=== PATIENT | male | born 1990 | race Caucasian/White ===

== ENCOUNTER 2017-07-20 05:54 | Emergency (ER) | payer SELFPAY ==
[~2017-07-20] VITALS: Ht 165.1 cm; Wt 109.1 kg
[2017-07-20 06:03] VITALS: BP 144/72; PULSE 115; RESP 18; O2SAT 93
[2017-07-20] MEDS ORDERED: ONDANSETRON HCL 4 MG/2 ML VIAL ONE (06:11)
[2017-07-20] MEDS ORDERED: SODIUM CHLOR 0.9% 1000 ML INJ 1,000 ML IV ONE (06:30)
[2017-07-20] MEDS ORDERED: ONDANSETRON HCL 4 MG/2 ML VIAL IV ONE (06:30)
[2017-07-20 06:52] LABS: AUTOMATED NEUTROPHIL # 6.4 TH/MM3 (1.8-7.7); BASOPHIL % 0.4 % (0.0-2.0); EOSINOPHIL # 0.1 TH/MM3 (0-0.4); EOSINOPHIL % 0.9 % (0.0-4.0); HEMATOCRIT 49.1 % (39.0-51.0); HEMO FLAGS DIFF FINAL; LYMPH % 37.4 % (9.0-44.0); LYMPHOCYTE # 4.5 TH/MM3 (1.0-4.8); MEAN CELL VOLUME 92.8 FL (80.0-100.0); MEAN CORPUSCULAR HEMOGLOBIN 32.2 PG (27.0-34.0); MEAN CORPUSCULAR HGB CONC 34.8 % (32.0-36.0); MONO % 8.8 % (0.0-8.0); NEUT % 52.5 % (16.0-70.0); PLATELET COUNT 293 TH/MM3 (150-450); RED BLOOD COUNT 5.29 MIL/MM3 (4.50-5.90); RED CELL DISTRIBUTION WIDTH 13.1 % (11.6-17.2); WHITE BLOOD COUNT 12.1 TH/MM3 (4.0-11.0)
[2017-07-20 07:00] VITALS: BP 113/58; PULSE 98; RESP 20; O2SAT 96
[2017-07-20 07:10] LABS: ANION GAP 11 MEQ/L (5-15); AST (GOT) 32 U/L (15-37); BICARBONATE 23.3 MEQ/L (21.0-32.0); BLOOD UREA NITROGEN 8 MG/DL (7-18); CHLORIDE 109 MEQ/L (98-107); GLOMERULAR FILTRATION RATE 88 ML/MIN (>89); POTASSIUM 3.7 MEQ/L (3.5-5.1); SODIUM (NA) 143 MEQ/L (136-145)
[2017-07-20 07:11] LABS: ALT (GPT) 55 U/L (12-78)
--- NOTE | 2017-07-20 07:20 | PD ---
HPI Chief Complaint: Alcohol/Drug Intoxication Time Seen by Provider: 06:19 Travel History International Travel<30 days: No Contact w/Intl Traveler<30days: No Traveled to known affect area: No History of Present Illness HPI The patient is a 26 year old male who presents to the [facility] emergency department with a history of being brought in under protective custody as a Decemberman act due to acute alcohol intoxication associated with combative behavior. According to the act the patient has been drinking alcohol for the last 24 hours. The patient on arrival is unable or unwilling to provide any history. The patient was initially combative on arrival. The patient was restrained in soft restraints for his and the staff's safety. The patient experienced nausea and vomiting on arrival. No other history is able to be obtained from the patient. [facility] Past Medical History Narrative Medical The patient's past medical history is unable to be obtained. Past Surgical History Surgical History: Unable to Obtain Social History Alcohol Use: Yes Tobacco Use: No Substance Use: No (unknown) Allergies-Medications (Allergen,Severity, Reaction): Coded Allergies: No Known Allergies (Unverified , 07/20/17) Review of Systems ROS Limitations: Intoxication, Altered Mental Status Gastrointestinal: Positive: Nausea, Vomiting Neurologic: Positive: Change in Mentation Psychiatric: Positive: Substance Abuse Physical Exam Narrative General: The patient is a well-developed well-nourished male, intermittently nauseated and vomiting on examination. The patient is also intermittently combative. The patient has slurred speech. The patient has a strong odor of alcohol about him. Head and Neck exam: Head is normocephalic atraumatic. Eyes: Pupils are equal round and reactive to light. Nose: Midline septum with pink mucous membranes Mouth: Dentition unremarkable. Moist mucus membranes. Posterior oropharynx is not erythematous. No tonsillar hypertrophy. Uvula midline. Airway patent. Neck: No palpable lymphadenopathy. No nuchal rigidity. No thyromegaly. Cardiovascular: Regular rate and rhythm without murmurs, gallops, or rubs. Lungs: Clear to auscultation bilaterally. No wheezes, rhonchi, or rales. Abdomen: Soft, without tenderness to palpation in all 4 quadrants of the abdomen. No guarding, rebound, or rigidity. Normal bowel sounds are audible. No tenderness on palpation of McBurney's point. Extremities: No clubbing, cyanosis, or edema. 2+ pulses in all 4 extremities. No calf tenderness on palpation. Back: No costovertebral angle tenderness to palpation. Neurologic Exam: The the patient is uncooperative with formal neurologic testing. The patient is moving all extremities equally with 5 over 5 strength. The patient has intact sensation over all dermatomes. Has slurred speech with a strong odor of alcohol about him. The patient is drowsy on examination although he is easily awakened. Skin Exam: No rash noted. Intact skin that is warm and dry. Data Data Last Documented VS Vital Signs Date Time Temp Pulse Resp B/P (MAP) Pulse Ox O2 Delivery O2 Flow Rate FiO2 07/20/17 06:03 115 18 144/72 (96) 93 Orders Orders Ondansetron Inj (Zofran Inj) (07/20/17 06:11) Complete Blood Count With Diff (07/20/17 06:19) Comprehensive Metabolic Panel (07/20/17:19) Lipase (07/20/17:19) Urinalysis - C+S If Indicated (07/20/17:19) Iv Access Insert/Monitor (07/20/17:19) Ecg Monitoring (07/20/17 06:19) Oximetry (07/20/17 06:19) Drug Screen, Random Urine (07/20/17:19) Alcohol (Ethanol) (07/20/17 06:19) Sodium Chlor 0.9% 1000 Ml Inj (Ns 1000 M (07/20/17 06:30) Ondansetron Inj (Zofran Inj) (07/20/17 06:30) Electrocardiogram (07/20/17 06:05) Labs Laboratory Tests Test 07/20/17 06:30 White Blood Count 12.1 TH/MM3 Red Blood Count 5.29 MIL/MM3 Hemoglobin 17.1 GM/DL Hematocrit 49.1 % Mean Corpuscular Volume 92.8 FL Mean Corpuscular Hemoglobin 32.2 PG Mean Corpuscular Hemoglobin Concent 34.8 % Red Cell Distribution Width 13.1 % Platelet Count 293 TH/MM3 Mean Platelet Volume 9.5 FL Neutrophils (%) (Auto) 52.5 % Lymphocytes (%) (Auto) 37.4 % Monocytes (%) (Auto) 8.8 % Eosinophils (%) (Auto) 0.9 % Basophils (%) (Auto) 0.4 % Neutrophils # (Auto) 6.4 TH/MM3 Lymphocytes # (Auto) 4.5 TH/MM3 Monocytes # (Auto) 1.1 TH/MM3 Eosinophils # (Auto) 0.1 TH/MM3 Basophils # (Auto) 0.0 TH/MM3 CBC Comment DIFF FINAL Differential Comment MDM Medical Decision Making Medical Screen Exam Complete: Yes Emergency Medical Condition: Yes Medical Record Reviewed: Yes Differential Diagnosis Alcohol intoxication, versus other substance intoxication, versus polysubstance abuse, versus acute psychosis Narrative Course During the course of the patients emergency department visit, the patients history, examination, and differential diagnosis were reviewed with the patient. The patient had IV access obtained and blood work sent for analysis. The patient was placed on a personnel monitor with oximetry and blood pressure monitoring. The patient was initially provided normal saline 1 L IV fluid bolus, Zofran 4 mg IV. The patients laboratory studies were reviewed and remarkable for a white count of 12.1, hemoglobin 17.1, platelets 293 with 8.8 monocytes. The patient's other laboratory studies are pending at the conclusion of my shift. The patient's case will be checked out to the oncoming emergency physician to disposition the patient based on the conclusion of the patient's workup. Diagnosis Primary Impression: Altered mental status Qualified Codes: R40.0 - Somnolence Breanna Figueroa MD Jul 20, 2017 07:20
[2017-07-20 07:21] LABS: ALKALINE PHOSPHATASE 98 U/L (45-117); TOTAL BILIRUBIN ADULT 0.3 MG/DL (0.2-1.0)
[2017-07-20 07:29] LABS: ALCOHOL 327 MG/DL (0-5)
--- NOTE | 2017-07-20 08:52 | PD ---
Physical Exam Date Seen by Provider: Jul 20, 2017 Time Seen by Provider: 08:51 Narrative 26-year-old male was brought in as a Marchman act by the solar lab technician for being found intensely intoxicated and destructive behavior. He was vomiting and was seen by the previous ER physician. Please refer to her notes regarding the details of history and physical. Sign out was to follow-up on his labs and the alcohol level. It is almost 330. Patient currently is inebriated. I will let him sleep it off and once he is awake and clinically sober will guide him to [facility]. Data Data Last Documented VS Vital Signs Date Time Temp Pulse Resp B/P (MAP) Pulse Ox O2 Delivery O2 Flow Rate FiO2 07/20/17 12:05 97.8 78 16 110/81 (91) 99 07/20/17 10:40 Room Air 07/20/17 07:00 2.00 Orders Orders Ondansetron Inj (Zofran Inj) (07/20/17 06:11) Complete Blood Count With Diff (07/20/17 06:19) Comprehensive Metabolic Panel (07/20/17 06:19) Lipase (07/20/17 06:19) Iv Access Insert/Monitor (07/20/17 06:19) Ecg Monitoring (07/20/17 06:19) Oximetry (07/20/17 06:19) Alcohol (Ethanol) (07/20/17 06:19) Sodium Chlor 0.9% 1000 Ml Inj (Ns 1000 M (07/20/17 06:30) Ondansetron Inj (Zofran Inj) (07/20/17 06:30) Electrocardiogram (07/20/17 06:05) Ed Discharge Order (07/20/17 12:03) Labs Laboratory Tests Test 07/20/17 06:30 White Blood Count 12.1 TH/MM3 Red Blood Count 5.29 MIL/MM3 Hemoglobin 17.1 GM/DL Hematocrit 49.1 % Mean Corpuscular Volume 92.8 FL Mean Corpuscular Hemoglobin 32.2 PG Mean Corpuscular Hemoglobin Concent 34.8 % Red Cell Distribution Width 13.1 % Platelet Count 293 TH/MM3 Mean Platelet Volume 9.5 FL Neutrophils (%) (Auto) 52.5 % Lymphocytes (%) (Auto) 37.4 % Monocytes (%) (Auto) 8.8 % Eosinophils (%) (Auto) 0.9 % Basophils (%) (Auto) 0.4 % Neutrophils # (Auto) 6.4 TH/MM3 Lymphocytes # (Auto) 4.5 TH/MM3 Monocytes # (Auto) 1.1 TH/MM3 Eosinophils # (Auto) 0.1 TH/MM3 Basophils # (Auto) 0.0 TH/MM3 CBC Comment DIFF FINAL Differential Comment Blood Urea Nitrogen 8 MG/DL Creatinine 1.03 MG/DL Random Glucose 92 MG/DL Total Protein 7.9 GM/DL Albumin 4.4 GM/DL Calcium Level 9.0 MG/DL Alkaline Phosphatase 98 U/L Aspartate Amino Transf (AST/SGOT) 32 U/L Alanine Aminotransferase (ALT/SGPT) 55 U/L Total Bilirubin 0.3 MG/DL Sodium Level 143 MEQ/L Potassium Level 3.7 MEQ/L Chloride Level 109 MEQ/L Carbon Dioxide Level 23.3 MEQ/L Anion Gap 11 MEQ/L Estimat Glomerular Filtration Rate 88 ML/MIN Lipase 206 U/L Ethyl Alcohol Level 327 MG/DL [facility] Supervised Visit with KAY: No Diagnosis Primary Impression: Altered mental status Qualified Codes: R40.0 - Somnolence Additional Impression: Acute alcohol intoxication Qualified Codes: F10.929 - Alcohol use, unspecified with intoxication, unspecified Disposition: 01 DISCHARGE HOME Condition: Stable Jannet Mancini MD Jul 20, 2017 08:52
[2017-07-20 10:40] VITALS: BP 108/77; PULSE 86; RESP 17; TEMP 97.8; O2SAT 98
[2017-07-20 12:05] VITALS: BP 110/81; TEMP 97.8
--- NOTE | 2017-07-20 14:55 | EKG ---
Date Performed: 07/20/2017 Time Performed: 06:05:29 PTAGE: 26 years EKG: SINUS TACHYCARDIA NON-SPECIFIC ST/T WAVE CHANGES NO PREVIOUS TRACING DOCTOR: Slim Mo Interpretating Date/Time 07/20/2017 14:53:35
== END 2017-07-20 12:06 | disposition home or self-care (01) ==
LOC: NEPE 05:54
DX: R41.82 Altered mental status, unspecified (principal); F10.129 Alcohol abuse with intoxication, unspecified; R40.0 Somnolence; Z79.899 Other long term (current) drug therapy
CPT/HCPCS: 80053; 80307; 83690; 85025; 93005; 96361; 96374; 99284; J7030; J2405